=== PATIENT | male | born 1980 | race Caucasian/White ===

== ENCOUNTER 2020-12-26 14:09 | Outpatient (REF) | payer BC, SELFPAY | END 2020-12-26 14:10 | disposition home or self-care (01) | LOC: HO.LAB 14:09 | PROVIDERS: Visit Provider Internal Medicine | DX: Z20.822 Contact with and (suspected) exposure to COVID-19 (principal) | CPT/HCPCS: 36415; C9803; U0003; U0005 ==

== ENCOUNTER 2021-07-19 10:35 | Outpatient (REF) | payer BC, SELFPAY | END 2021-07-19 10:36 | disposition home or self-care (01) | LOC: HO.LAB 10:35 | PROVIDERS: Visit Provider Internal Medicine | DX: Z20.822 Contact with and (suspected) exposure to COVID-19 (principal) | CPT/HCPCS: C9803; U0003; U0005 ==

== ENCOUNTER 2024-10-07 00:01 | Emergency (ER) | payer BC, SELFPAY ==
[2024-10-07 00:09] VITALS: BP 134/80; PULSE 74; RESP 18; TEMP 36.9; O2SAT 96; BMI 33.0
[2024-10-07] MEDS: Lidocaine HCl 1 % MPF 5 ML VIAL SUBCUT (01:02)
--- NOTE | 2024-10-07 01:13 | ED.DENTAL ---
HPI - Dental/Oral General Chief complaint: Dental/Oral Stated complaint: Dental pain, headake Time Seen by Provider: 10/07/24 00:34 Source: patient Mode of arrival: ambulatory Limitations: no limitations History of Present Illness ED Provider: JULIO MELGAR Narrative: 44 yo male otherwise healthy has had a dental on left lower jaw for a few days went to his dentist they Rx clindamyinc and told him it was infected impacted wisdom tooth and the xray was concerning for swelling in his airway He notes they told him just to follow up with oral surgeon for removal of the tooth. He has tried OTC meds but still has pain. He states he cannot sleep. He has no fevers n/v/d, he states his breathing is fine, he is able to swallow fine and he has no concerns about his breathing. Voice is normal. He can open his mouth Complaint: tooth pain Location: Tooth # (17) Onset (ago): day(s) (few) Duration: constant Severity: severe Relieving factors: nothing Exacerbating factors: chewing, cold and drinking fluids Context: history of dental caries Associated symptoms: gum swelling Treatment prior to arrival: other Related Data Previous Rx's ?Medication ?Instructions ?Recorded morphine 15 mg immediate release 15 mg PO Q6H PRN pain #12 tabs 10/07/24 tablet Allergies Allergy/AdvReac Type Severity Reaction Status Date / Time No Known Allergies Allergy Unverified 10/07/24 00:14 Review of Systems Review of Systems: Constitutional : No Fever, No Chills ENT/Mouth : No swallowing difficulty, no change in voice, positive dental pain, positive jaw pain, no facial swelling Eyes: No Eye Pain, No Swelling Cardiovascular : No Chest Pain, No SOB Respiratory : No Cough, No Sputum Gastrointestinal : No Nausea, No Vomiting, No Diarrhea Genitourinary : No Dysuria Musculoskeletal : No Myalgias Skin : No rash Neuro : No Weakness, No Numbness, No Headache all other systems reviewed and are negative PMFSH Past Medical History Attestation statement: The following information was validated with the patient. Medical History No pertinent past medical history Social History Social History (Updated 10/07/24 @ 01:22 by Denise Cunningham DO) Patient Tobacco Use Status: Tobacco use Unknown Physical Exam Vital Signs: Vital Signs: Last Vital Signs Temp 98.4 F 10/07/24 00:09 Pulse 74 10/07/24 00:09 Resp 18 10/07/24 00:09 BP 134/80 10/07/24 00:09 Pulse Ox 96 10/07/24 00:09 O2 Del Method Room Air 10/07/24 00:09 BMI result Body Mass Index 33.0 Appearance: Alert. Oriented X3. No acute distress. Eyes: Pupils equal, round and reactive to light. ENT: Pharynx normal. no trismus has impacted and decayed L lower last molar - there is no sublingual swelling, normal ROM of neck, no posterior pharynx swelling, no facial swelling or cellulitis, L anterior cervical small lymphadenopathy but no neck mass or ropy cord, no drooling, voice is normal Neck: Normal inspection. Neck supple. CVS: Pulses normal. Respiratory: No respiratory distress. Breath sounds normal. no stridor Abdomen: Soft and non-tender. Skin: Skin warm and dry. Normal skin color. Extremities: No lower extremity edema. Neuro: Oriented X 3. No motor deficit. No sensory deficit. Medications Administered Discontinued Medications Generic Name Dose Route Start Last Admin Trade Name Freq PRN Reason Stop Dose Admin Lidocaine HCl 5 ml 10/07/24 00:34 10/07/24 01:02 Lidocaine Hcl 1 % Mpf 5 Ml Vial SUBCUT 10/07/24 00:35 5 ml ONCE ONE Administration Medical Decision Making Medical Decision Making [facility] Narrative: 44 yo male otherwise healthy here with dental pain on exam no trismus no concern for airway issues and no signs of deeper space infection will provide oral analgesia, topical numbing medications, dental block he is already on clindamycin and plans to call surgeon in AM Differential Diagnosis Differential Diagnoses: The differential diagnosis associated with the presentation includes toothache, dental caries, abscess Independent Historian Clinical information obtained from an independent historian. History obtained from or confirmed by: Friend Prescription Management I considered prescription management with: Antibiotic Procedures Nerve Block Nerve Block 1: Time out performed: Yes Local Anesthetic: lidocaine 1% Amount of anesthesia used (mL): 3 Side: left Intraoral Nerve Block: inferior alveolar Procedure Successful: Yes Patient Tolerated Procedure: well and no complications Complications: none Discharge Plan Discharge Clinical Impression: Toothache Patient Disposition: Home, Self-Care Instructions: Toothache (ED) Additional Instructions: continue with your antibiotics - take a probiotic with it or eat yogurt every day the shot will hopefully last you 6 hours return for worsening symptoms such as unable to open mouth, noisy breathing, unable to swallow, fevers, swelling across the neck or any other concerns follow up with oral surgeon as soon as possible Prescriptions: New morphine 15 mg tablet 15 mg PO Q6H PRN (Reason: pain) Qty: 12 0RF Rx Instructions: partial fill okay; Partial Fill upon patient request. Print Language: Spanish
[2024-10-07 01:25] VITALS: BP 122/65; PULSE 82; RESP 16; TEMP 36.8; O2SAT 96
[2024-10-07] MEDS: Morphine Sulfate Immed Release 15 MG TABLET PO (01:26)
[2024-10-07 01:29] VITALS: BP 122/65; PULSE 82; RESP 16; TEMP 36.8; O2SAT 96
== END 2024-10-07 01:30 | disposition home or self-care (01) ==
PROVIDERS: Emergency Provider Emergency Medicine
DX: K08.89 Other specified disorders of teeth and supporting structures (principal)
CPT/HCPCS: 64400; 99284; J2003